=== PATIENT | female | born 1945 | race Caucasian/White ===

== ENCOUNTER 2016-09-17 17:50 | Inpatient (IN) | payer MEDICARE, OTHER ==
[~2016-09-17] VITALS: Ht 170.2 cm; Wt 99.4 kg
--- NOTE | ~2016-09-17 | HP ---
ADMIT: 09/17/2016 RM/LOC: 414 [facility] MR#: [id number] [address] [address] LYNNE MEI M [address] [place] [address] History and Physical SEX: F AGE: 70 : 1945 DATE OF SERVICE: 09/18/2016 CHIEF COMPLAINT: Vomiting, constipation. HISTORY OF PRESENT ILLNESS: Lynne is a 70-year-old white female patient of mine, who presented to the [facility] Emergency Department on 09/17/2016 with approximately 2 to 3 weeks of progressively worsening constipation which got to the point of its highest severity in the last 4 days or so. She notes intense abdominal cramping and passing small pellet like stools and pencil thin stools. She has not noticed any weight loss or any blood in her stools. She also notes that in the last 48 hours she has had multiple episodes of vomiting, including about 5 times prior to coming into the ER, a couple times in the ER, and then since then dry heaves since being admitted. She also has noted in the last several weeks some urinary frequency and urgency, but no significant dysuria. She has not had any fevers, chest pain, worsening shortness of breath, rashes, dyspnea on exertion. PAST MEDICAL HISTORY: Includes; 1. Hypertension. 2. Chronic obstructive pulmonary disease and emphysema. 3. Hypothyroidism. 4. Vitamin D deficiency. 5. Osteopenia. 6. Generalized osteoarthritis. 7. History of long-term tobacco use. 8. Irritable bowel syndrome. PAST SURGICAL HISTORY: 1. She has had an appendectomy. 2. Cholecystectomy. 3. Back surgery with metallic implant. ALLERGIES: SHE IS ALLERGIC TO CODEINE. BACTRIM WHICH CAUSES A RASH. CEPHALOSPORINS WHICH CAUSES A RASH. MACROBID WHICH CAUSES NAUSEA. OUTPATIENT MEDICATIONS: Include: 1. Bentyl 20 mg twice daily. 2. Synthroid 88 mcg daily, last filled on 08/04/2016 for one year. 3. Tramadol 50 mg t.i.d. 4. Lisinopril 10 mg daily. 5. Voltaren gel 4 times daily as needed. 6. Stiolto Respimat one puff daily. 7. Multivitamin daily. 8. Vitamin D 2000 units daily. 9. Cimetidine 200 mg at bedtime. 10.Tylenol 650 mg every 6 hours as needed for pain. 11.Calcium 500 mg daily. 12.Travatan eye drops. ADMIT: 09/17/2016 RM/LOC: 414 [facility] MR#: [id number] [address] [address] [facility] [address] [place] [address] History and Physical SEX: F AGE: 70 : 1945 SOCIAL HISTORY: She is . She is a former smoker who smoked about 50 pack years, and quit at the age of 66. She admits to occasional alcohol use and drinks [address] Kasper every day. She denies any drug use. Health maintenance history includes most recent colonoscopy in November of 2012 which was within normal limits, performed by Dr. Ezra Rios. She has previously refused mammograms. Her last bone density test was August of 2015, showing osteopenia. FAMILY HISTORY: Heart disease in her mother and her father. Hypertension in one of her parents though she does remember which one. Diabetes mellitus in her mother, father, and sister. REVIEW OF SYSTEMS: As per HPI. All others reviewed were negative. PHYSICAL EXAMINATION: VITAL SIGNS: Blood pressure is 125/82, pulse 91, respirations 20, temp 96.1, O2 saturation is 94% on room air. GENERAL: She is awake, alert, no acute distress. Comfortable in the hospital bed. HEENT: Normocephalic and atraumatic. SKIN: Dry appearing. NECK: Supple. No lymphadenopathy. HEART: Regular rate and rhythm. No murmurs, gallops, or rubs. LUNGS: Clear to auscultation bilaterally. ABDOMEN: Obese, soft, nontender, nondistended. No rebound, guarding, or masses. EXTREMITIES: No cyanosis, clubbing, or edema. LABORATORY AND X-RAY DATA: Pertinent positives include UA consistent with urinary tract infection and urine culture growing out greater than a 1000 colonies of gram-negative rods. Negative procalcitonin 0.12, lactic acid levels that were elevated on admission through the ER, but have since normalized. Admission levels were in the 2 to 3 range. Her most recent lactic acid is 1.7. CK was elevated, but troponin, CK-MB were negative. Her admission creatinine was elevated at 2.1. Her outpatient baseline creatinine is around 0.8. Occult blood test x1 is negative. CBC this morning shows a white count of 11.1, hemoglobin 13, and platelet count of 292. A CT scan of her abdomen and pelvis done through the ER, shows a diffuse ileus, and postop changes in the lumbar spine. No acute inflammatory changes are seen. ASSESSMENT AND PLAN: 1. Urinary tract infection. 2. Sepsis. 3. Ileus. 4. Chronic constipation. 5. Acute kidney injury. 6. Hypothyroidism. 7. Chronic obstructive pulmonary disease. ADMIT: 09/17/2016 RM/LOC: 414 [facility] MR#: [id number] [facility] [address] [address] LYNNE MEI [address] [place] [address] History and Physical SEX: F AGE: 70 : 1945 8. Hypertension. 9. Vitamin D deficiency. 10.Osteopenia. 11.History of longstanding tobacco abuse. PLAN: October has been started on Levaquin for urinary tract infection. Her lactic acid levels have normalized and her creatinine is improved with IV hydration. Her abdominal pain is actually improved right now. I am going to go ahead and hold off on restarting her Bentyl. We will obtain General Surgery consult to determine if she should have another colonoscopy for her change in bowel habits. I do wonder if her thyroid is contributing to her constipation as such TSH has been ordered and is pending. Her most recent TSH in the outpatient setting was in August of 2015 and was 1.56 on her Synthroid dose. I am going to start her on a clear liquid diet and advance her as tolerated at this point. Gilbert Quinn MD/ quin JOB #: [id number] CC: Gilbert Quinn, Attending Physician Gilbert Quinn, Family Physician
[2016-09-20] MEDS ORDERED: VITAMIN D31000 UNIT PO (13:18)
[2016-09-20] MEDS ORDERED: NASAL SPRAY30 M1 NS (13:19)
[2016-09-20] MEDS ORDERED: CIMETIDINE200 MG PO (13:19)
[2016-09-20] MEDS ORDERED: SYNTHROID88 MCG PO (13:19)
[2016-09-20] MEDS ORDERED: ZESTRIL DPS10 MG PO (13:19)
[2016-09-20] MEDS ORDERED: STIOLTO RESPIMAT4 GM IH (13:20)
[2016-09-20] MEDS ORDERED: COMPLETE MULTI1 EAC2 PO (13:20)
[2016-09-20] MEDS ORDERED: ARTHRITIS PAIN650 MG PO (13:20)
[2016-09-20] MEDS ORDERED: COLACE-DPS100 MG PO (13:21)
[2016-09-20] MEDS ORDERED: XALATAN2.5 ML OU (13:21)
[2016-09-20] MEDS ORDERED: OYSTER SHELL C500 MG PO (13:21)
[2016-09-20] MEDS ORDERED: TRAVATAN2.5 ML OU (13:21)
[2016-09-20] MEDS ORDERED: TYLENOL DPS325 MG PO (13:21)
[2016-09-20] MEDS ORDERED: LEVAQUIN DPS750 MG PO (13:22)
[2016-09-20] MEDS ORDERED: PROVENTIL2.5 MG/0.5 IH (13:22)
[2016-09-20] MEDS ORDERED: SENNA-S TABLET1 EACH PO (13:23)
[2016-09-20] MEDS ORDERED: K-PHOS NEUTRAL250 MG PO (13:23)
--- NOTE | 2016-09-22 15:21 | ER ---
ADMIT: 09/17/2016 RM/LOC: 414 [facility] MR#: [id number] [address] [address] NORIS MEI M [address] [place] [address] Emergency Room Report SEX: F AGE: 70 : 1945 DATE: 09/17/2016 HISTORY OF PRESENT ILLNESS: The patient is a 70-year-old, vomiting 30 minutes prior to arrival. She had dry heaving. She had some bile color emesis. Last bowel movement was at 5:00 p.m. She has had some cramping, sharp. REVIEW OF SYSTEMS: Otherwise negative. PAST MEDICAL HISTORY: COPD, emphysema, hypothyroidism, hypertension, and glaucoma, and she has had back surgery. MEDICATIONS: Include: 1. Lisinopril. 2. Levothyroxine. 3. Dicyclomine. 4. Proventil. 5. Cimetidine. 6. Multivitamins. ALLERGIES: SHE IS ALLERGIC TO CEPHALEXIN, CEPHALOSPORIN, AND SULFA. PHYSICAL EXAMINATION: GENERAL: Moderate anxiety. VITAL SIGNS: Blood pressure 108/67 with a heart rate of 114. GENERAL: She is alert, O2 sats 92% on room air, temp is 99. RESPIRATIONS: No distress. Breath sounds are normal. CVS: Tachycardic. ABDOMEN: Right upper and lower quadrant abdominal pain with cramping. BACK: Normal inspection. SKIN: Good color and turgor. EXTREMITIES: Well perfused. NEUROLOGIC: Oriented x4. Mood and affect are appropriate. LABORATORY AND X-RAY DATA: CT abdomen ileus, dilated loops. WBC is 14.5 with platelets of 347, calcium is 10.6. Chemistry; glucose 16.7, creatinine is 2.0, GFR is 23. UA; blood trace, wbc's 39, rbc's 2, leukocytes 2+, urobilinogen 2.0, and protein 2+. Culture and sensitivity to follow. As I talked to Dr. Rendon to get this patient admitted after getting the report from the CT, radiologist noted her blood pressure was below 100 and we decided to start the sepsis protocol. We still have to do the blood cultures. She will get the lactic acid, EKG, procalcitonin. ADMIT: 09/17/2016 RM/LOC: 414 [facility] MR#: [id number] [facility] [address] [address] MEI, JUNE M [address] [place] [address] Emergency Room Report SEX: F AGE: 70 : 1945 CLINICAL IMPRESSION: 1. Urinary tract infection. 2. Hypotension. 3. Intractable vomiting. 4. Ileus. 5. Abdominal pain. 6. Renal injury. DISPOSITION: The patient will be admitted under Dr. Rendon's care. Orders received at 2024 hours. The patient had received already 1 L of normal saline, was given Protonix and Zofran and that has helped some with her nausea and vomiting. VERNELL Nathan / Sae Tran MD / modl JOB #: [id number] CC: Gilbert Quinn MD, Attending Physician Gilbert Quinn MD, Family Physician
--- NOTE | 2016-09-27 08:36 | DS ---
ADMIT: 09/17/2016 RM/LOC: 414 [facility] MR#: [id number] [address] [address] LYNNE MEI M [address] [place] [address] Discharge Summary SEX: F AGE: 70 : 1945 ADMISSION DATE: 09/17/2016 DISCHARGE DATE: 09/19/2016 ADMITTING DIAGNOSES: 1. Urinary tract infection. 2. Sepsis. 3. Ileus. 4. Chronic constipation. 5. Acute kidney injury. 6. Hypothyroidism. 7. Chronic obstructive pulmonary disease. 8. Hypertension. 9. Vitamin D deficiency. 10.Osteopenia. 11.History of longstanding tobacco abuse. DISCHARGE DIAGNOSES: 1. Urinary tract infection, E. (Escherichia) coli, pansensitive to antibiotics. 2. Sepsis, resolved. 3. Ileus, resolved. 4. Chronic constipation. 5. Acute diarrhea. 6. Acute kidney injury secondary to volume depletion and vomiting, resolved. 7. Hypothyroidism, normal TSH (thyroid-stimulating hormone) of 3.7. 8. COPD (chronic obstructive pulmonary disease). 9. Hypertension. 10.Vitamin D deficiency. 11.Osteopenia. 12.History of longstanding tobacco abuse. PROCEDURES: None. CONSULTATIONS: Curtis Palomo MD, General Surgery, consulted 09/18/2016. HISTORY AND PHYSICAL EXAMINATION: Lynne is a 70-year-old white female patient of mine who presented to the [facility] Emergency Department on 09/17/2016 with approximately 2-3 weeks of progressively worsening constipation, which got to the point of its high severity in the last 4 days or so. She notes intense abdominal cramping and passing small, pellet-like stools and pencil thin stools. She has not had any weight loss or blood in her stools. She also had about 5 episodes of vomiting prior to coming to the ER and a couple episodes of vomiting in the ER, and then subsequently had dry heaves. She has also, in the past several weeks, had some urinary frequency and urgency but no significant dysuria or fevers, chest pain, worsening shortness of breath, rashes, or dyspnea on exertion. On her initial exam, her vitals were stable. She was afebrile, not requiring any oxygen. Abdominal exam and cardiopulmonary exam was unremarkable. Lab and x-ray data showed a UA consistent with urinary tract infection. Subsequent urine culture has ADMIT: 09/17/2016 RM/LOC: 414 [facility] MR#: [id number] [address] [address] [facility] [address] [place] [address] Discharge Summary SEX: F AGE: 70 : 1945 grown out E. coli, which is pansensitive to all antibiotics tested. Her procalcitonins were negative. She did have a mild bump in her CK and her creatinine to 2.1. Her baseline is around 0.7-0.8. Occult blood testing was negative. Hemoglobin was unremarkable. CT scan of her abdomen and pelvis showed a diffuse ileus. She was subsequently admitted to the hospital. HOSPITAL COURSE: Hospital course was unremarkable. She was started on clear liquid diet, which he tolerated just well, and instead of having constipation she actually had diarrhea. Stool for enteric C. diff, O and P all were negative. She remained afebrile, off oxygen, was able to tolerate p.o., and by the morning of 09/19/2016 was felt safe for discharge with further management of her urinary tract infection and her chronic constipation as an outpatient. DISCHARGE CONDITION: Fair. DISPOSITION: She will be discharged to home. DISCHARGE MEDICATIONS: Discharge medications will include: 1. Vitamin D 3000 units daily. 2. Levothyroxine 88 mcg daily. 3. Equate nasal spray q.6 hours as needed. 4. Lisinopril 10 mg daily. 5. Proventil HFA q.4 hours p.r.n. 6. Cimetidine 200 mg at HS. 7. Tylenol 650 mg t.i.d. 8. Multivitamin daily. 9. Stiolto Respimat 1 puff daily. 10.Calcium 500 mg daily. 11.Travatan eyedrops. 12.Latanoprost eyedrops. 13.Levaquin 750 mg p.o. daily for 10 days. 14.Senna S 2 tabs p.o. b.i.d. p.r.n. constipation. She was advised that she needs to increase her fiber intake, get plenty of activity, and use MiraLAX for constipation. I will plan on following up with her next week. Gilbert Quinn MD/ hector JOB #: [id number] CC: Gilbert Quinn MD, Attending Physician Gilbert Quinn MD, Family Physician
--- NOTE | 2016-10-18 08:57 | CO ---
ADMIT: 09/17/2016 RM/LOC: 414 [facility] MR#: [id number] [address] [address] NORIS MEI M [address] [place] [address] Consultation Report SEX: F AGE: 70 : 1945 CORRECTED: 09/21/2016 0649 [facility] DATE OF CONSULTATION: 09/18/2016 ATTENDING PHYSICIAN: Gilbert Quinn MD CONSULTING PHYSICIAN: Curtis Palomo MD HISTORY OF PRESENT ILLNESS: The patient is a very pleasant 70-year-old female, who comes in due to progressive issues regarding abdominal bloating, fullness, constipation. On the course of the workup, she has been noted to have gram-negative urinary tract infection and had radiograph revealing diffuse ileus. On visiting with the patient, she states she has had constipation for "37 years" it has been a constant problem for her for many many years. She denies any appetite or weight changes. Denies blood in her stools. She admits to her stools here more recently being tougher to have with them being very hard and thin pencil stools. She has been on some type of "pooping medicine," which I suspect is some type of stool softener, has recently started on MiraLax, which has improved some of her bowel movements to be a little softer and easier to have. She has had two colonoscopies in the past, she believes her last one was one year ago, both of which colonoscopy, she describes as being normal with no mechanically obstructive pathology. She believes maybe Dr. Rios was the name she recognizes doing the last one, one year ago possibly over at the surgery center. PAST MEDICAL HISTORY: Includes COPD, hypertension, hypothyroidism, vitamin D deficiency, osteopenia, osteoarthritis, and chronic constipation. PAST SURGICAL HISTORY: Includes cholecystectomy, appendectomy, and back surgery in the past. ALLERGIES: CODEINE, BACTRIM, CEPHALOSPORINS, AND MACROBID. MEDICATIONS: Include: 1. Lisinopril. 2. Tramadol. 3. Synthroid. 4. Bentyl. 5. Voltaren Gel. 6. Extra-strength Tylenol for arthritis. 7. Vitamin D. 8. Multivitamin. 9. Cimetidine. 10.Calcium. 11.Some eye drops. SOCIAL HISTORY: She is . She smoked many years. Drinks alcohol occasionally. ADMIT: 09/17/2016 RM/LOC: 414 [facility] MR#: [id number] [address] [address] MEI, NORIS [address] [place] [address] Consultation Report SEX: F AGE: 70 : 1945 FAMILY HISTORY: Some heart disease, hypertension, and diabetes. REVIEW OF SYSTEMS: Denies headaches, chest pain, or shortness of breath. She has had the abdominal fullness, nausea per HPI as well as severe constipation. PHYSICAL EXAMINATION: GENERAL: She is afebrile. VITALS SIGNS: Stable. HEART: Regular. LUNGS: Clear. ABDOMEN: Soft, nondistended, and nontender. No peripheral edema. No focal neurologic deficits. ASSESSMENT AND PLAN: The patient is a 70-year-old female with many years of chronic constipation and now with also urinary tract infection. Currently, being treating with IV Levaquin. I think the question has been posed whether to repeat her colonoscopy. I do not know that would be necessarily indicated, but I will be more than happy to proceed with one. I told her if she has had two them, and both of them were normal, and the last one has been within the last several years. It is very unlikely there is any type of mechanical obstructive reason for her constipation, much more likely that this is a functional issue. I then had a fairly lengthy discussion with her and her sister regarding daily scheduled fiber at least twice a day. She balked at that a little bit just because she does not like the taste of the fiber. Also talked about drinking about 60 ounces of water in addition to her fiber, will help to soften her stools to some degree and then just use a p.r.n. laxative if she continues to have some issues. I did tell both that in extreme measures if the patient with functional colonic ileus with no improvement with fiber, stool softeners, laxatives, and habit changes; there are time the patients have total colectomy and ileostomy, which of course they are not very interested in. At this point time, we will just simply follow along if it is decided that we should try to do another colonoscopy, I would be more than willing to do one, but again listening to her history of chronic constipation, having two normal colonoscopies, the last one being within the last several years, potentially even last year. I think it would be low yield in assisting us with her constipation issues. In addition, she may have been exacerbated here more recently due to urinary tract infection, which might have also added an infectious ileus picture to her chronic constipation. Curtis Palomo MD/ quin JOB #: [id number] CC: Gilbert Quinn MD, Attending Physician Gilbert Quinn MD, Family Physician CORRECTED: 09/21/2016 0649 NJKerry
== END 2016-09-19 10:05 | disposition home or self-care (01) | DRG 872 ==
LOC: ER 17:50 → 4PCU 20:20
PROVIDERS: ADMIT Family Medicine
DX: A41.9 Sepsis, unspecified organism (principal); N17.9 Acute kidney failure, unspecified; K56.7 Ileus, unspecified; N39.0 Urinary tract infection, site not specified; E86.9 Volume depletion, unspecified; J43.9 Emphysema, unspecified; B96.20 Unspecified Escherichia coli [E. coli] as the cause of diseases classified elsewhere; M15.9 Polyosteoarthritis, unspecified; K59.09 Other constipation; E03.9 Hypothyroidism, unspecified; I10 Essential (primary) hypertension; E55.9 Vitamin D deficiency, unspecified; M85.80 Other specified disorders of bone density and structure, unspecified site; H40.9 Unspecified glaucoma; Z87.891 Personal history of nicotine dependence; Z66 Do not resuscitate